=== PATIENT | female | born 1960 | race Caucasian/White ===

== ENCOUNTER 2018-09-14 13:33 | Emergency (ER) | payer OTHER ==
[2018-09-14] MEDS ORDERED: SODIUM CHLORIDE 0.9% 1000ML 1,000 ML IVS ONE (14:05)
--- NOTE | 2018-09-14 14:09 | ED.PDOC ---
History of Present Illness - General Chief Complaint: GI Problem Stated Complaint: 3 week hx of diarrhea Time Seen by Provider: 09/14/18 14:05 Information Source: patient, family Exam Limitations: no limitations - History of Present Illness Initial Comments: patient comes in today with 3 week history of persistent loose diarrhea. Patient states it's become uncontrollable and it runs down her leg. Patient has no blood in it usually yellow to green with a foul odor. Patient has no fever but some chills. She states she had been losing weight even prior to that without trying. She denies any cough or cold symptoms. But she did have a sinus infection directly prior to this starting and was on Cefdnir. Patient states after that is when she started with uncontrollable diarrhea and abdominal discomfort. Patient has tried [id number] diarrheal medicines but it only helped her for one day and then it started all over again. She's been eating but states she feels weak. Patient has no past medical history. Patient does smoke a pack and a half a day since age 12. She does not drink alcohol nor use drugs now but she was an alcoholic and did use methamphetamines but quit in 2012. Patient has no known drug allergies. Abdominal Pain Onset Location: generalized abdomen Pain Radiation: no radiation Quality: mild, cramping Timing/Duration: getting worse Improving Factors: nothing Worsening Factors: nothing Associated Symptoms: diarrhea, fever/chills Review of Systems - Review of Systems Constitutional: States: chills, malaise. Denies: fever, weakness EENTM: States: no symptoms reported. Denies: ear discharge, nose congestion, throat pain Respiratory: States: no symptoms reported. Denies: cough, short of breath Cardiology: States: no symptoms reported. Denies: chest pain, palpitations Gastrointestinal/Abdominal: States: see HPI, diarrhea Genitourinary: States: no symptoms reported Musculoskeletal: States: no symptoms reported Skin: States: no symptoms reported Neurological: States: no symptoms reported Past Medical History (General) - Patient Medical History Hx Stroke: No Hx of COPD: Yes - dx'ed 10/2014 Hx Congestive Heart Failure: No Hx Hypertension: Yes - no longer takes medicine Hx Diabetes: No - Vaccination History Hx Influenza Vaccination: No - Social History Hx Tobacco Use: Yes - 09/2014 Family Medical History - Family History Father Living Status: Hx Cardiac Disease: Yes - had a AL Hx Family Cancer: Yes Physical Exam - Physical Exam General Appearance: Alert, Comfortable, Frail Eyes, Ears, Nose, Throat Exam: PERRL/EOMI, normal ENT inspection, TMs normal, pharynx normal - dry mucous membranes Neck: non-tender, full range of motion, supple, normal inspection Respiratory: chest non-tender, lungs clear, normal breath sounds, no respiratory distress, no accessory muscle use Cardiovascular/Chest: normal peripheral pulses, regular rate, rhythm, no edema, no gallop, no JVD, no murmur Gastrointestinal/Abdominal: normal bowel sounds, soft, distended - mild, tenderness - diffusely with no rebound and no guarding Back Exam: no CVA tenderness Neurologic: alert, oriented x 3 Progress - Results/Orders Results/Orders: 09/14/18 14:05 CLOSTRIDIUM DIFFICILE AG/TOXIN Stat STOOL CULTURE Stat Laboratory Results WBC 13.4 K/mm3 (4.8-10.8) H 09/14/18 14:05 RBC 3.82 M/mm3 (4.20-5.40) L 09/14/18 14:05 Hgb 11.7 gm/dL (12.0-16.0) L 09/14/18 14:05 Hct 35.7 % (36.0-47.0) L 09/14/18 14:05 MCV 93.5 fl (81.0-99.0) 09/14/18 14:05 MCH 30.6 pg (27.0-31.0) 09/14/18 14:05 MCHC 32.7 g/dL (33.0-37.0) L 09/14/18 14:05 RDW 13.5 % (11.5-14.5) 09/14/18 14:05 Plt Count 269 K/mm3 (130-400) 09/14/18 14:05 MPV 8.5 fl (7.40-10.4) 09/14/18 14:05 Absolute Neuts (auto) 10.70 K/uL (1.8-6.8) H 09/14/18 14:05 Absolute Lymphs (auto) 1.60 K/uL (1.0-3.4) 09/14/18 14:05 Absolute Monos (auto) 0.70 K/uL (0.2-0.8) 09/14/18 14:05 Absolute Eos (auto) 0.20 K/uL (0.0-0.4) 09/14/18 14:05 Absolute Basos (auto) 0.00 K/uL (0.0-0.1) 09/14/18 14:05 Neutrophils % 80.2 % (42.0-78.0) H 09/14/18 14:05 Lymphocytes % 12.1 % (20.0-50.0) L 09/14/18 14:05 Monocytes % 5.6 % (2.0-9.0) 09/14/18 14:05 Eosinophils % 1.7 % (1.0-5.0) 09/14/18 14:05 Basophils % 0.4 % (0.0-2.0) 09/14/18 14:05 Sodium 137 mmol/L (135-145) 09/14/18 14:05 Potassium 3.5 mmol/L (3.6-5.0) L 09/14/18 14:05 Chloride 109 mmol/L (101-111) 09/14/18 14:05 Carbon Dioxide 17 mmol/L (21-31) L 09/14/18 14:05 Anion Gap 14.5 (12-18) 09/14/18 14:05 BUN 10 mg/dL (7-18) 09/14/18 14:05 Creatinine 0.73 mg/dL (0.6-1.3) 09/14/18 14:05 BUN/Creatinine Ratio 13.7 (10-20) 09/14/18 14:05 Random Glucose 81 mg/dL (70-105) 09/14/18 14:05 Serum Osmolality 271.9 mOsm/L (275-295) L 09/14/18 14:05 Lactic Acid 0.7 mmol/L (0.5-2.2) 09/14/18 14:05 Calcium 7.9 mg/dL (8.4-10.2) L 09/14/18 14:05 Total Bilirubin 0.8 mg/dL (0.2-1.0) 09/14/18 14:05 AST 12 IU/L (10-42) 09/14/18 14:05 ALT < 8 IU/L (10-60) L 09/14/18 14:05 Alkaline Phosphatase 57 IU/L (42-121) 09/14/18 14:05 Serum Total Protein 6.1 gm/dL (6.4-8.2) L 09/14/18 14:05 Albumin 3.1 g/dl (3.2-5.5) L 09/14/18 14:05 Globulin 3.0 gm/dL (2.3-3.5) 09/14/18 14:05 Albumin/Globulin Ratio 1.0 (1.1-1.9) L 09/14/18 14:05 TSH 0.79 uIU/mL (0.34-5.60) 09/14/18 14:05 Patient Name: ILIANA FAY Gender: Female Date of : 1960 Referring Physician: TAMICA CERNA Organization: [facility] Accession Number: [id number] Requested Date: September 14, 2018 14:05 Report Status: Final Requested Procedure: 1 Procedure Description: Abdomen 1 View Modality: CR Findings Reporting MD: Mango Crawford Fellow MD: Not available Dictation Time: Bench Loom Weaver: Not available Tower Observer Date: EXAM DESCRIPTION: XR Abdomen 1 View CLINICAL HISTORY: 58 years Female, pain and diarrhea COMPARISON: None. FINDINGS: Portable supine AP views of the abdomen show slight gaseous distention of multiple loops of small bowel, without significant dilatation. Findings are nonspecific but may represent enteritis. I doubt obstruction, but this could be reevaluated as needed on a follow-up exam. Some gas is noted in the colon, with possible haustral thickening or thumbprinting on the right side. Soft tissue detail is somewhat limited, but there is no evidence of gross organomegaly. Surgical clips are seen in the right upper abdomen. Regional bony structures appear intact, with note of slight rotation and possible minimal right convex lumbar scoliosis. IMPRESSION: Nonspecific changes, including increased small bowel gas and possible haustral thickening or thumbprinting in the right colon. Enteritis and colitis not excluded. Clinical correlation also suggested to exclude intramural hemorrhage in the colon. Microbiology 09/14/18 16:32 Stool Clostridium difficile Toxin A & B - Final Antigen positive toxin negative PCR pending Departure - Departure Clinical Impression: Diarrhea Qualifiers: Diarrhea type: infectious Qualified Code(s): A09 - Infectious gastroenteritis and colitis, unspecified Disposition: Discharge to Home or Self Care Departure Forms: ED Discharge - Pt. Copy, Patient Portal Self Enrollment Home Medications: Ambulatory Orders Clonazepam 0.5 mg PO BEDTIME 02/10/14 Topiramate [Topamax] 100 mg PO DAILY 02/10/14 Acetaminophen W/ Codeine [Tylenol W/ CODEINE #3] 1 - 2 ea PO Q4H PRN #20 12/10/14 Naproxen [Naprosyn] 500 mg PO BID #20 tab 12/10/14 QUEtiapine FUMARATE [SEROquel] 100 mg PO BEDTIME 12/10/14 Additional Instructions: OTC probiotics, and follow up in clinic for PCR and stool culture results in 3-5 days. Return to ER for weakness, temp >100.5, worsening symptoms.
--- NOTE | 2018-09-14 15:43 | RAD ---
EXAM DESCRIPTION: XR Abdomen 1 View CLINICAL HISTORY: 58 years Female, pain and diarrhea COMPARISON: None. FINDINGS: Portable supine AP views of the abdomen show slight gaseous distention of multiple loops of small bowel, without significant dilatation. Findings are nonspecific but may represent enteritis. I doubt obstruction, but this could be reevaluated as needed on a follow-up exam. Some gas is noted in the colon, with possible haustral thickening or thumbprinting on the right side. Soft tissue detail is somewhat limited, but there is no evidence of gross organomegaly. Surgical clips are seen in the right upper abdomen. Regional bony structures appear intact, with note of slight rotation and possible minimal right convex lumbar scoliosis. IMPRESSION: Nonspecific changes, including increased small bowel gas and possible haustral thickening or thumbprinting in the right colon. Enteritis and colitis not excluded. Clinical correlation also suggested to exclude intramural hemorrhage in the colon. Electronically signed by: Mango Crawford MD 09/14/2018 3:41 PM CDT
[2018-09-14] MEDS ORDERED: DIPHENOXYLATE HCL/ATROPINE 2.5 MG TAB PO ONE (17:46)
[2018-09-14 18:37] VITALS: BP 101/66; O2SAT 98
== END 2018-09-14 18:30 | disposition home or self-care (01) ==
LOC: ER 13:33
DX: A09 Infectious gastroenteritis and colitis, unspecified (principal); J44.9 Chronic obstructive pulmonary disease, unspecified; F17.210 Nicotine dependence, cigarettes, uncomplicated
CPT/HCPCS: 36415; 74018; 80053; 83605; 84443; 85025; 87045; 87046; 87324; 87449; 87493; J7030

== ENCOUNTER → 2018-10-22 | Outpatient (CLI) | payer OTHER ==
--- NOTE | 2018-10-23 07:57 | CT ---
Procedure: CT LUNG SCREENING Exam Date: 10/22/2018. Ordering Provider: Anthony Priest Clinical Indication: Personal history of tobacco 50+ pack years cigarette smoking. Current smoker. This patient meets eligibility criteria for low-dose CT lung cancer screening. Comparison: None. Technique: Using a multislice scanner, sequential helical axial imaging was obtained in the thorax, 2.5 mm thickness, 2.5 mm separation, from the level of the thoracic inlet through the lung bases without IV contrast. A low dose protocol was utilized for BMI less than 30: BMI: 23.8. CTDI: 1.76 mGy. 120. kVp. 45 mA. DLP 68.3 mGy-centimeters. 2D sagittal and coronal reconstructed images, 6.0 mm thickness, were obtained. This exam was performed according to our departmental dose optimization program which includes use of automated exposure control, adjustment of the mA and/or kV according to patient size and/or use of iterative reconstruction technique. Nodule measurements under 10 mm are given as mean value of 3 axes diameters. FINDINGS: Lungs and large airways: 3 mm solid nodule abutting the superior right major fissure on axial series 3, image 52. Multiple solid and some solid subpleural nodules 2 mm in diameter and less bilaterally upper lobes and lower lobes. No abnormal nodule or mass. No focal infiltrate. Small blebs in a centrilobular distribution more prevalent in the upper lung licona. Bilateral pleural-parenchymal scarring in the base of the right middle lobe and inferior lingula. Pleura and space: Bilateral focal thickening more prevalent in the upper lobes and the apices. No effusion or pneumothorax.. Mediastinum and melanie: evaluation limited by low dose technique and lack of IV contrast. Small nodes and no dominant soft tissue masses. Heart and great vessels: Coronary artery calcifications particularly LAD. Atherosclerotic calcifications brachiocephalic vessels and aorta. Chest wall, lower neck, axillae: Evaluation also limited by same factors as described above. Bilateral breast calcifications. Upper abdomen: Evaluation limited by low-dose technique. No free fluid or free air in the included peritoneal space. Surgical clips in the gallbladder fossa with no fluid. Osseous structures: Evaluation limited by low dose MIP technique. ACDF included cervical spine. Minimal thoracic kyphosis. No lytic or blastic lesions. IMPRESSION: 1. Bilateral multiple solid and semisolid nodules, predominantly subpleural and 3 mm or less in diameter. No abnormal nodules or masses. No focal infiltrates. Mild emphysematous disease predominantly in the upper lung licona.. [facility] Best Practice guidelines: Please see below for Lung RADS category and FOLLOW-UP.* *Lung RADS category CATEGORY 2S- Nodules with a very low likelihood (less than 1%) of becoming a clinically active cancer due to size or lack of growth. Nodules: Perifissural nodule(s) < 10 mm. (526mm3). Solid or part solid nodule(s) less than 6mm (113.1 mm3), new solid nodule less than 4mm (33.5 mm3). Ground glass nodule(s) less than 30mm (68482.2 mm3) or unchanged or slow growing ground glass nodule 30mm or greater. Cat 3 or 4 nodule unchanged for 3 or more months. FOLLOW-UP: Continue annual screening with a Low Dose Chest CT in 12 months for re-evaluation. 2. Lung RADS Modifier S - Clinically Significant or Potentially Clinically Significant Findings (non lung cancer). Bilateral breast calcifications. Consider bilateral digital breast screening tomosynthesis, if not performed in the past 12 months. Electronically signed by: Reza Hoskins MD 10/23/2018 7:54 AM CDT
== END ==
LOC: CT 09:00
PROVIDERS: ATTEND Family Medicine
DX: Z87.891 Personal history of nicotine dependence (principal); R91.8 Other nonspecific abnormal finding of lung field

== ENCOUNTER 2018-12-21 16:03 | Emergency (ER) | payer OTHER ==
[2018-12-21] MEDS ORDERED: predniSONE 20 MG TAB PO ONE (17:13)
[2018-12-21] MEDS ORDERED: AMOXICILLIN & POT CLAVULANATE 875 MG TAB PO ONE (17:13)
--- NOTE | 2018-12-21 17:15 | ED.PDOC ---
History of Present Illness - General Chief Complaint: Headache Time Seen by Provider: 12/21/18 16:45 Source: patient Exam Limitations: no limitations - History of Present Illness Initial Comments: the patient is a 58-year-old female presenting to the emergency room secondary to chronic recurrent headaches that when questioned more closely seemed to be stemming from maxillary sinus pressure bilaterally. The patient wakes in the morning almost unable to breathe through her nares. She does have a significant history of seasonal allergies. She has had multiple episodes of sinusitis. No altered mental status. No focal changes. The headaches and sinus issues started when they moved to the area a couple of years ago. This is been an ongoing problem for her for quite some time and she has seen a neurologist for in the past. No trauma.the patient did also just recently apparently lose her pain management doctor for her chronic neck pain. Timing/Duration: other - 2 years Severity: moderate Improving Factors: nothing Worsening Factors: nothing Associated Symptoms: headaches Allergies/Adverse Reactions: Allergies NO KNOWN ALLERGY Allergy (Unverified 02/10/14 18:54) Home Medications: Ambulatory Orders Clonazepam 0.5 mg PO BEDTIME 02/10/14 Topiramate [Topamax] 100 mg PO DAILY 02/10/14 Acetaminophen W/ Codeine [Tylenol W/ CODEINE #3] 1 - 2 ea PO Q4H PRN #20 12/10/14 Naproxen [Naprosyn] 500 mg PO BID #20 tab 12/10/14 QUEtiapine FUMARATE [SEROquel] 100 mg PO BEDTIME 12/10/14 Amoxicillin & Pot Clavulanate [Augmentin Tab] 875 mg PO BID #20 tab 12/21/18 Montelukast [Singulair] 10 mg PO DAILY #30 tab 12/21/18 predniSONE [Prednisone] 20 mg PO DAILY #10 tab 12/21/18 Review of Systems - Review of Systems Constitutional: States: malaise EENTM: States: nose congestion Respiratory: States: no symptoms reported Cardiology: States: no symptoms reported Gastrointestinal/Abdominal: States: no symptoms reported Genitourinary: States: no symptoms reported Musculoskeletal: States: no symptoms reported Skin: States: no symptoms reported Neurological: States: headache Endocrine: States: no symptoms reported All other Systems: No Change from Baseline Past Medical History (General) - Patient Medical History Hx Stroke: No Hx of COPD: Yes - dx'ed 10/2014 Hx Congestive Heart Failure: No Hx Hypertension: Yes - no longer takes medicine Hx Diabetes: No - Vaccination History Hx Influenza Vaccination: No - Social History Hx Tobacco Use: Yes - 09/2014 Family Medical History - Family History Father Living Status: Hx Cardiac Disease: Yes - had a PR Hx Family Cancer: Yes Physical Exam - Physical Exam General Appearance: Alert, Comfortable, No apparent distress Eye Exam: bilateral normal Ears, Nose, Throat: hearing grossly normal, nasal congestion, other - bilateral maxillary sinus tenderness to palpation. 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 She definitely has some significant seasonal allergies which may also be contributing to this and some long-standing chronic neck pain that is likely contributing to headaches as well. The patient is going to be placed on prednisone 20 mg daily for the next 10 days. She'll also be placed on Augmentin twice daily for the next 10 days to target the sinusitis. She needs to avoid sleeping under a vent or under a ceiling fan. A humidifier by the bed at night may also help. She needs to keep follow-up with her primary care doctor and her neurologist for her other chronic issues. i'm also going to write her for a month's worth of Singulair to be taken after she completes the steroid and the antibiotic to see if suppressing her allergies can prevent a recurrence of the sinusitis and headaches. ER warnings were given. Keep well hydrated. [email or web address] [email or web address] [phone] Departure - Departure Clinical Impression: Chronic sinusitis of both maxillary sinuses, Environmental allergies Chronic tension headaches Qualifiers: Intractability: not intractable Qualified Code(s): G44.229 - Chronic tension- type headache, not intractable Disposition: Discharge to Home or Self Care Condition: Fair Departure Forms: ED Discharge - Pt. Copy, Patient Portal Self Enrollment Instructions: DI for Headache, DI for Sinus Headache, DI for Sinusitis Diet: regular diet Activity: increase activity as tolerated Prescriptions: Amoxicillin & Pot Clavulanate [Augmentin Tab] 875 mg PO BID #20 tab Montelukast [Singulair] 10 mg PO DAILY #30 tab predniSONE [Prednisone] 20 mg PO DAILY #10 tab Home Medications: Ambulatory Orders Clonazepam 0.5 mg PO BEDTIME 02/10/14 Topiramate [Topamax] 100 mg PO DAILY 02/10/14 Acetaminophen W/ Codeine [Tylenol W/ CODEINE #3] 1 - 2 ea PO Q4H PRN #20 12/10/14 Naproxen [Naprosyn] 500 mg PO BID #20 tab 12/10/14 QUEtiapine FUMARATE [SEROquel] 100 mg PO BEDTIME 12/10/14 Amoxicillin & Pot Clavulanate [Augmentin Tab] 875 mg PO BID #20 tab 12/21/18 Montelukast [Singulair] 10 mg PO DAILY #30 tab 12/21/18 predniSONE [Prednisone] 20 mg PO DAILY #10 tab 12/21/18 Additional Instructions: the patient a 58-year-old female presenting to emergency room secondary to chronic recurrent headaches that appear to be primarily due to recurrent maxillary sinusitis. She definitely has some significant seasonal allergies which may also be contributing to this and some long-standing chronic neck pain that is likely contributing to headaches as well. The patient is going to be placed on prednisone 20 mg daily for the next 10 days. She'll also be placed on Augmentin twice daily for the next 10 days to target the sinusitis. She needs to avoid sleeping under a vent or under a ceiling fan. A humidifier by the bed at night may also help. She needs to keep follow-up with her primary care doctor and her neurologist for her other chronic issues. i'm also going to write her for a month's worth of Singulair to be taken after she completes the steroid and the antibiotic to see if suppressing her allergies can prevent a recurrence of the sinusitis and headaches. ER warnings were given. Keep well hydrated.
[2018-12-21 17:34] VITALS: O2SAT 98
[2018-12-21 17:44] VITALS: BP 108/69; TEMP 98.2
== END 2018-12-21 17:43 | disposition home or self-care (01) ==
LOC: ER 16:03
DX: G44.229 Chronic tension-type headache, not intractable (principal); J32.0 Chronic maxillary sinusitis; J30.2 Other seasonal allergic rhinitis; J44.9 Chronic obstructive pulmonary disease, unspecified; G89.29 Other chronic pain; M54.2 Cervicalgia; Z79.899 Other long term (current) drug therapy; Z87.891 Personal history of nicotine dependence